=== PATIENT | male | born 1955 | race Caucasian/White ===

== ENCOUNTER 2020-05-14 07:55 | Day surgery (SDC) | payer BC, MEDICARE, OTHER ==
[~2020-05-14 07:55] MED LIST: CHONDR SU A NA/HYALUR INTRAOC KIT (SURGICARE) ONE; EPINEPHRINE INJ/PF 1 MG/1 ML AMPULE ONE; KETOROLAC TROMETHAMINE 0.45% 4 DROP/0.4 ML DROPERETTE OS PRN; LIDOCAINE 1%/PHENYLEPHRINE 1.5% 1 ML VIAL ONE
[2020-05-14] MEDS ORDERED: MIDAZOLAM 2 MG/2 ML INJ ONE ×3 (08:12→10:45)
[2020-05-14] MEDS ORDERED: ONDANSETRON HCL INJ/PF 4 MG/2 ML SDV ONE (08:12)
[2020-05-14] MEDS ORDERED: FENTANYL CITRATE INJ/PF 100 MCG/2 ML AMPUL ONE ×2 (08:12→10:45)
[2020-05-14] MEDS: TETRACAINE HCL 0.5% OPH SOLN 4 ML OS PRN ×3 (08:37→09:12)
[2020-05-14] MEDS: CYCLOPENTOLATE 0.2%/PHENYLEPHRINE 1% OPH SOLN 2 ML OS PRN ×3 (08:38→08:48)
[2020-05-14] MEDS: TROPICAMIDE 1% OPH SOLN 15 ML OS PRN ×3 (08:38→08:48)
[2020-05-14] MEDS: BESIFLOXACIN HCL 0.6% OPH SUSP 5 ML BOTTLE OS PRN ×4 (08:38→10:39)
[2020-05-14] MEDS: PREDNISOLONE ACETATE 1% OPH SUSP 5 ML OS PRN ×2 (09:28→10:39)
[2020-05-14] MEDS: DORZOLAMIDE HCL 2%/TIMOLOL MALEAT 0.5% OPH SOLN 10 ML OS PRN ×2 (09:28→10:39)
[2020-05-14] MEDS ORDERED: CHONDR SU A NA/HYALUR SOD 0.5 ML DISP.SYRIN ONE ×4 (09:42→10:24)
[2020-05-14] MEDS ORDERED: HYALURONATE SODIUM SYRINGE 0.55 ML ONE (10:28)
[2020-05-14] MEDS ORDERED: ACETAMINOPHEN 1,000 MG/100 ML RTUPB IV ONE (10:45)
[2020-05-14] MEDS ORDERED: DORZOLAMIDE HCL 2%/TIMOLOL MALEAT 0.5% OPH SOLN 10 ML ONE (10:49)
--- NOTE | 2020-05-14 13:43 | Operative Report ---
Operative Report-[facility] Operative Report: DATE OF SURGERY: 05/14/20 PREOPERATIVE DIAGNOSIS: Cataracts, left eye POSTOPERATIVE DIAGNOSIS: Cataract, left eye OPERATION: Cataract extraction with insertion of an panoptic's toric IOL of the left eye. Intraocular Lens Model: [19.0 TF NT 30 rotated to 170 degrees] SURGEON: Anant Herman MD Complications: Floppy iris and broken IOL haptic requiring IOL exchange ANESTHESIA: Topical PROCEDURE: After obtaining appropriate consent, the patient's left eye was prepped and draped in a sterile fashion as well as the surgeon in the sterile manner and cataract surgery was started. First a paracentesis blade was used to make a side-port incision. Viscoelastic was used to inflate the anterior chamber. Next a 2.4 mm incision was made with a 2.4 mm blade, clear corneal temporarily. A continuous capsulorrhexis was made using a cystotome and Utrata forceps. Following this hydrodissection was carried out to make the lens fully loose and mobile and it was rotated 90 degrees. Following this, a divide and conquer technique was used to phacoemulsify the lens. The remaining cortex was removed with an irrigation/aspiration. Provisc was instilled into the capsular bag to inflate the bag.The intraocular lens was placed. Once the IOL was injected into the eye it was found that the haptic was broken. I took a similar lens implant and injected it into the capsular bag and left the damaged IOL in the anterior chamber. The damaged IOL was cut in half and removed from the eye. The incision needed to be enlarged to 3.0 mm. during this process it was found that there was a small area of transillumination in the iris nasally . The remaining viscoelastic material was removed with irrigation/aspiration. Following this, the incision was found to be watertight. Besivance and Cosopt was instilled into the eye and a protective shield was placed over the eye. The patient was returned to the postoperative recovery in a stable condition.
== END 2020-05-14 11:28 | disposition home or self-care (01) ==
LOC: SC 07:55
PROVIDERS: ATTEND Internal Medicine
DX: H25.812 Combined forms of age-related cataract, left eye (principal); I10 Essential (primary) hypertension; E78.00 Pure hypercholesterolemia, unspecified
CPT/HCPCS: 66984; V2788; J2250; J3490 ×5; J0171; J3010; J2405; J0131

== ENCOUNTER 2020-06-27 06:48 | Day surgery (SDC) | payer BC, MEDICARE, OTHER ==
[~2020-06-27 06:48] MED LIST changes: -CHONDR SU A NA/HYALUR INTRAOC KIT (SURGICARE) ONE; -EPINEPHRINE INJ/PF 1 MG/1 ML AMPULE ONE; +KETOROLAC TROMETHAMINE 0.45% 4 DROP/0.4 ML DROPERETTE OD PRN; -KETOROLAC TROMETHAMINE 0.45% 4 DROP/0.4 ML DROPERETTE OS PRN; -LIDOCAINE 1%/PHENYLEPHRINE 1.5% 1 ML VIAL ONE
[2020-06-27] MEDS: CYCLOPENTOLATE 0.2%/PHENYLEPHRINE 1% OPH SOLN 2 ML OD PRN ×3 (07:06→07:30)
[2020-06-27] MEDS: TROPICAMIDE 1% OPH SOLN 15 ML OD PRN ×3 (07:06→07:30)
[2020-06-27] MEDS: TETRACAINE HCL 0.5% OPH SOLN 4 ML OD PRN ×2 (07:06→07:30)
[2020-06-27] MEDS: BESIFLOXACIN HCL 0.6% OPH SUSP 5 ML BOTTLE OD PRN ×4 (07:06→08:29)
[2020-06-27] MEDS ORDERED: CHONDR SU A NA/HYALUR INTRAOC KIT (SURGICARE) ONE (07:22)
[2020-06-27] MEDS ORDERED: LIDOCAINE 1%/PHENYLEPHRINE 1.5% 1 ML VIAL ONE (07:22)
[2020-06-27] MEDS ORDERED: EPINEPHRINE INJ/PF 1 MG/1 ML AMPULE ONE (07:22)
[2020-06-27] MEDS ORDERED: MIDAZOLAM 2 MG/2 ML INJ ONE (07:37)
[2020-06-27] MEDS ORDERED: FENTANYL CITRATE INJ/PF 100 MCG/2 ML AMPUL ONE (07:38)
[2020-06-27] MEDS: PREDNISOLONE ACETATE 1% OPH SUSP 5 ML OD PRN ×2 (08:29)
[2020-06-27] MEDS: DORZOLAMIDE HCL 2%/TIMOLOL MALEAT 0.5% OPH SOLN 10 ML OD PRN ×2 (08:29)
--- NOTE | 2020-06-28 08:11 | Operative Report ---
Operative Report-[facility] Operative Report: DATE OF SURGERY: 06/27/2020 PREOPERATIVE DIAGNOSIS: Cataract, right eye POSTOPERATIVE DIAGNOSIS: Cataract, right eye OPERATION: Cataract extraction with insertion of an toric IOL of the right eye. Intraocular Lens Model: [19.5 TF NT 30 rotated to 165 degrees] Patient underwent surgery for difficulty seeing small print SURGEON: Anant Herman MD ANESTHESIA: Topical PROCEDURE: After obtaining appropriate consent, the patient's right eye was prepped and draped in a sterile fashion as well as the surgeon in the sterile manner and cataract surgery was started. First a paracentesis blade was used to make a side-port incision. Viscoelastic was used to inflate the anterior chamber. Next a 2.4 mm incision was made with a 2.4 mm blade, clear corneal temporarily. A continuous capsulorrhexis was made using a cystotome and Utrata forceps. Following this hydrodissection was carried out to make the jaison fully loose and mobile and it was rotated. Following this, a divide and conquer technique was used to phacoemulsify the jaison. The remaining cortex was removed with an irrigation/aspiration. Provisc was instilled into the capsular bag to inflate the bag. The intraocular lens was placed. The remaining viscoelastic material was removed with irrigation/aspiration. Following this, the incision was found to be watertight. Besivance and Cosopt was instilled into the eye and a protective shield was placed over the eye. The patient was reurned to the postoperative recovery in a stable condition.
== END 2020-06-27 09:11 | disposition home or self-care (01) ==
LOC: SC 06:48
PROVIDERS: ATTEND Internal Medicine
DX: H25.811 Combined forms of age-related cataract, right eye (principal); Z96.1 Presence of intraocular lens; I10 Essential (primary) hypertension; E78.00 Pure hypercholesterolemia, unspecified
CPT/HCPCS: 66984; V2788; J2250; J3490 ×2; J0171; J3010